=== PATIENT | female | born 2000 | race Hispanic/Latino ===

== ENCOUNTER 2021-09-09 09:23 | Emergency (ER) | payer OTHER ==
--- NOTE | 2021-09-09 11:15 | ER ---
Nurse's Notes [facility] Name: Dolores Owusu Age: 20 yrs Sex: Female : 2000 Arrival Date: 09/09/2021 Time: 09:25 Bed Waiting Private MD: Jimena Victor Diagnosis: Historical: - Allergies: 09/09 13:27 No Known Allergies; ms3 - PMHx: 13:27 Asthma; ms3 ED Course: 09:25 Patient arrived in ED. am2 09:25 Jimena Victor is Private Physician. am2 09:29 Sam Macias DO is Attending Physician. ms3 10:55 Patient's name was called from ER lobby. No response. Unable to locate patient. Will jl7 disposition as left without being seen by a provider. 11:08 Patient's name was called from ER lobby. No response. Unable to locate patient. Will jl7 disposition as left without being seen by a provider. 11:14 Patient's name was called from ER lobby. No response. Unable to locate patient. Will jl7 disposition as left without being seen by a provider. Administered Medications: No medications were administered Outcome: 11:15 Patient left the ED. jl7 Signatures: Patrick Mcgowan RN RN jl7 Shelbi West am2 Sam Macias DO DO ms3 Corrections: (The following items were deleted from the chart) 13:28 13:27 PMHx: Depression; ms3 ms3
--- NOTE | 2021-09-12 20:32 | EDPHYS ---
Physician Documentation [facility] Name: Dolores Owusu Age: 20 yrs Sex: Female : 2000 Arrival Date: 09/09/2021 Time: 09:25 Bed Waiting Private MD: Jimena Victor ED Physician Sam Macias HPI: 09/09 09:35 This 20 yrs old Female presents to ER via Unassigned with complaints of ms3 Headache, Worst Ever. 09:35 The patient complains of pain to the right jainism and left jainism. ms3 09:35 The patient describes the headache as throbbing. Onset: The symptoms/episode ms3 began/occurred 1 week(s) ago. Associated signs and symptoms: Pertinent negatives: nausea, vomiting. Severity of symptoms: At its worst the pain was severe, in the emergency department the pain is unchanged. The symptoms are alleviated by nothing. the symptoms are aggravated by nothing. Historical: - Allergies: 13:27 No Known Allergies; ms3 - PMHx: 13:27 Asthma; ms3 ROS: 13:27 Eyes: Negative for injury, pain, redness, and discharge, Neck: Negative for injury, ms3 pain, and swelling, Cardiovascular: Negative for chest pain, and palpitations. Respiratory: Negative for shortness of breath, cough, wheezing, and pleuritic chest pain, Abdomen/GI: Negative for abdominal pain, nausea, vomiting, diarrhea, and constipation, Skin: Negative for injury, rash, and discoloration. 13:27 Constitutional: Positive for chills, Negative for fever. 13:27 Neuro: Positive for headache. 13:27 All other systems are negative. Exam: 13:27 Constitutional: This is a well developed, well nourished patient who is awake, alert, ms3 and in no acute distress. Head/Face: Normocephalic, atraumatic. Eyes: Pupils equal round and reactive to light, extra-ocular motions intact. Lids and lashes normal. Conjunctiva and sclera are non-icteric and not injected. Periorbital areas with no swelling, redness, or edema. ENT: Nares patent. No nasal discharge, no septal abnormalities noted. Tympanic membranes are normal and external auditory canals are clear. Oropharynx with no redness, swelling, or masses, exudates, or evidence of obstruction, uvula midline. Mucous membranes moist. Chest/axilla: Normal chest wall appearance and motion. Nontender with no deformity. Cardiovascular: Regular rate and rhythm with a normal S1 and S2. No gallops, murmurs, or rubs. Normal PMI, no JVD. No pulse deficits. Respiratory: Lungs have equal breath sounds bilaterally, clear to auscultation and percussion. No rales, rhonchi or wheezes noted. No increased work of breathing, no retractions or nasal flaring. Abdomen/GI: Soft, non-tender, with normal bowel sounds. No distension or tympany. No guarding or rebound. No evidence of tenderness throughout. MS/ Extremity: Pulses equal, no cyanosis. Neurovascular intact. Full, normal range of motion. Neuro: Awake and alert, GCS 15, oriented to person, place, time, and situation. Cranial nerves II-XII grossly intact. Motor strength 5/5 in all extremities. Sensory grossly intact. Cerebellar exam normal. Normal gait. Psych: Awake, alert, with orientation to person, place and time. Behavior, mood, and affect are within normal limits. MDM: 09:38 Patient medically screened. ms3 13:27 Differential diagnosis: COVID vs URI vs Migraine. ED course: patient left from the ms3 waiting room prior to nursing triage. Unable to give patient discharge instructions. Administered Medications: No medications were administered Disposition Summary: 09/09/21 11:15 Eloped Disposition: Before Triage jl7 Reason: unknown jl7 Signatures: Dispatcher [employer] EDMS Patrick Mcgowan RN RN jl7 Sam Macias DO DO ms3 Corrections: (The following items were deleted from the chart) 13:27 13:26 The patient complains of pain to the right jainism and left jainism, ms3 ms3 13:27 13:26 This 20 yrs old Female presents to ER via Unassigned with complaints of ms3 Headache, Worst Ever. ms3 13:28 13:27 PMHx: Depression; ms3 ms3 13:46 13:27 ED course: patient left from the waiting room prior to nursing triage.. ms3 ms3
== END 2021-09-09 11:15 | disposition left against medical advice (07) ==
LOC: ER 09:23
DX: Z02.9 Encounter for administrative examinations, unspecified (principal)